=== PATIENT | female | born 1945 | race Caucasian/White ===

== ENCOUNTER → 2019-05-27 | Day surgery (SDC) | payer MEDICARE, OTHER ==
[2019-05-26 14:39] LABS: BASOPHILS # (AUTO) 0.1 (0.0-0.1); BASOPHILS % 0.4 % (0.0-1.0); EOSINOPHILS # (AUTO) 0.2 (0.0-0.4); EOSINOPHILS % 1.5 % (0.0-6.0); HEMATOCRIT 43.3 % (34.2-44.1); HEMOGLOBIN 14.3 g/dL (12.0-16.0); LYMPHOCYTES % 16.7 % (18.0-39.1); MEAN CORPUSCULAR HEMOGLOBIN 29.9 pg (28-32); MEAN CORPUSCULAR VOLUME 90.4 fL (81-99); MONOCYTES % 8.8 % (4.4-11.3); NEUTROPHILS # (AUTO) 8.4 (2.1-6.9); NEUTROPHILS % 72.1 % (38.7-80.0); PLATELET COUNT 272 x10e3/uL (140-360); RED BLOOD COUNT 4.79 x10e6/uL (3.6-5.1); RED CELL DISTRIBUTION WIDTH 13.7 % (11.7-14.4)
[2019-05-26 14:53] LABS: INR 1.23; PROTHROMBIN TIME 15.8 seconds (11.9-14.5)
[2019-05-26 15:02] LABS: ALANINE AMINOTRANSFERASE 14 IU/L (0-55); ALBUMIN 3.7 g/dL (3.5-5.0); ALBUMIN/GLOBULIN RATIO 1.2 (0.8-2.0); ALKALINE PHOSPHATASE 76 IU/L (40-150); ANION GAP 13.3 mmol/L (8-16); BLOOD UREA NITROGEN 14 mg/dL (7-26); BUN/CREATININE RATIO 18 (6-25); CALCIUM 9.3 mg/dL (8.4-10.2); CARBON DIOXIDE 27 mmol/L (22-29); CHLORIDE 100 mmol/L (98-107); CREATININE, SERUM 0.76 mg/dL (0.57-1.11); EST GLOMERULAR FILTRATION RATE > 60 ML/MIN (60-); GLUCOSE 102 mg/dL (74-118); POTASSIUM 3.3 mmol/L (3.5-5.1); SODIUM 137 mmol/L (136-145)
[~2019-05-27] VITALS: Ht 154.9 cm; Wt 86.2 kg
[~2019-05-27] MED LIST: ALPRAZOLAM0.25 MG PO; AMIODARONE HCL200 MG PO; BENZOCAINE 20% SPR 60 ML CAN ONE; BREO ELLIPTA 21 EACH INH; ELIQUIS5 MG PO; FENTANYL CITRATE/PF 100MCG/2 ML INJ ONE; LEXAPRO10 MG PO; METOPROLOL SUCC50 MG PO; MIDAZOLAM HCL 2 MG/2 ML VIAL ONE; PROPOFOL IV EMULSION 10 MG/ML 20 ML VIAL ONE; SODIUM CHLORIDE 0.9% 1000ML 1,000 ML ONE
--- OUTSIDE RECORDS SUMMARY | 2019-05-27 07:57 | XMS REPORT ---
Author Author [facility] Address Unknown Phone Unavailable Care Team Providers Care Machine Rigger Name Role Phone Conor PHILLIPS Unavailable Unavailable Problems This patient has no known problems. Allergies, Adverse Reactions, Alerts This patient has no known allergies or adverse reactions. Medications This patient has no known medications. Results Test Description Test Time Test Comments Text Results Atomic Results Result Comments BREAST ULTRASOUND BILATERAL 2019-03-04 15:03:00 - DIAG MAMM BILATERAL DIONNE CAD DIGITALBILATERAL DIGITAL DIAGNOSTIC MAMMOGRAM 3D/2D WITH CAD: 03/04/2019CLINICAL: Dense breasts. Digital breast tomosynthesis was performed in addition to routine CC and MLO views. Current mammographic images were evaluated by either a [employer] M-Vu or a Fanear ImageChecker CAD (computer aided detection system). Comparison is made to exams dated 02/17/2018 mammogram, 01/20/2017 mammogram, and 01/19/2016 mammogram - [facility]. The tissue of both breasts is heterogeneously dense. This may lower the sensitivity of mammography. No suspicious mass, architectural distortion, malignant type calcification, or lymph node abnormality detected. INCOMPLETE: ADDITIONAL IMAGING EVALUATION NEEDEDBilateral ultrasound pending for additional evaluation. Resume annual screening mammography in one year. - BREAST ULTRASOUND BILATERALULTRASOUND OF BOTH BREASTS AND BOTH AXILLA: 03/04/2019Comparison is made to exams dated 02/17/2018 mammogram, 01/20/2017 mammogram, and 01/19/2016 mammogram - [facility]. Real-time ultrasound of both breasts and both axilla and clinical breast exam were performed. No abnormalities were seen sonographically in either breast or either axilla. Clinical breast exam was unremarkable.IMPRESSION: NEGATIVE There is no sonographic evidence of malignancy. Patient has been informed that she has areas of dense breast tissue that could make it difficult to find a small cancer. She has a strong family history of breast cancer. A screening mammogram and supplemental ultrasound for dense breast tissue is recommended in 1 year. Lazara Canales M.D. dm/:03/04/2019 15:03:00 Balloon Artist: Nelly MAHMOOD, [facility]letter sent: BIRADS 1-2 Combo FU Letter Mammogram BI-RADS: 0 Incomplete: Additional Imaging Evaluation Needed Ultrasound BI-RADS: 1 Negative DIAG MAMM BILATERAL DIONNE CAD DIGITAL 2019-03-04 15:03:00 - DIAG MAMM BILATERAL DIONNE CAD DIGITALBILATERAL DIGITAL DIAGNOSTIC MAMMOGRAM 3D/2D WITH CAD: 03/04/2019CLINICAL: Dense breasts. Digital breast tomosynthesis was performed in addition to routine CC and MLO views. Current mammographic images were evaluated by either a [employer] M-Vu or a Fanear ImageChecker CAD (computer aided detection system). Comparison is made to exams dated 02/17/2018 mammogram, 01/20/2017 mammogram, and 01/19/2016 [facility]. The tissue of both breasts is heterogeneously dense. This may lower the sensitivity of mammography. No suspicious mass, architectural distortion, malignant type calcification, or lymph node abnormality detected. INCOMPLETE: ADDITIONAL IMAGING EVALUATION NEEDEDBilateral ultrasound pending for additional evaluation. Resume annual screening mammography in one year. - BREAST ULTRASOUND BILATERALULTRASOUND OF BOTH BREASTS AND BOTH AXILLA: 03/04/2019Comparison is made to exams dated 02/17/2018 mammogram, 01/20/2017 mammogram, and [facility]. Real-time ultrasound of both breasts and both axilla and clinical breast exam were performed. No abnormalities were seen sonographically in either breast or either axilla. Clinical breast exam was unremarkable.IMPRESSION: NEGATIVE There is no sonographic evidence of malignancy. Patient has been informed that she has areas of dense breast tissue that could make it difficult to find a small cancer. She has a strong family history of breast cancer. A screening mammogram and supplemental ultrasound for dense breast tissue is recommended in 1 year. Lazara Canales M.D. dm/:03/04/2019 15:03:00 Balloon Artist: Mara Connell [facility]letter sent: BIRADS 1-2 Combo FU Letter Mammogram BI-RADS: 0 Incomplete: Additional Imaging Evaluation Needed Ultrasound BI-RADS: 1 Negative BREAST ULTRASOUND BILATERAL 2018-02-18 07:59:30 - DIAG MAMM BILATERAL DIONNE CAD DIGITALBILATERAL DIGITAL DIAGNOSTIC MAMMOGRAM 3D/2D WITH CAD: 02/17/2018CLINICAL: Dense breasts. Digital breast tomosynthesis was performed in addition to routine CC and MLO views. Current mammographic images were evaluated by either a [employer] M-Vu or a Fanear ImageChecker CAD (computer aided detection system). Comparison is made to exams dated 01/20/2017 mammogram, 01/19/2016 mammogram, and 01/06/2015 mammogram - [facility] The tissue of both breasts is heterogeneously dense. This may lower the sensitivity of mammography. No suspicious mass, architectural distortion, malignant type calcification, or lymph node abnormality detected. INCOMPLETE ASSESSMENT: ADDITIONAL IMAGING EVALUATION RECOMMENDEDUltrasound pending for additional evaluation. Resume annual screening mammography in one year. - BREAST ULTRASOUND BILATERALULTRASOUND OF BOTH BREASTS AND BOTH AXILLA: 02/17/2018Comparison is made to exams dated 01/20/2017 mammogram, 01/19/2016 mamm ogram, and 01/06/2015 mammogram - [facility] Real-time ultrasound of both breasts and both axilla was performed. No abnormalities were seen sonographically in either breast or either axilla. IMPRESSION: NEGATIVE There is no sonographic evidence of malignancy. Patient has been informed that she has areas of dense breast tissue that could make it difficult to find a small cancer. A screening mammogram and supplemental ultrasound for dense breast tissue is recommended in 1 year.Lazara Canales M.D. dm/:02/18/2018 07:59:30 copy to: Rigo Villa D.O., ph: [phone], fax: [phone] Technologist: Lona MAHMOOD, [facility] sent: BIRADS 1-2 Combo FU Letter Mammogram BI-RADS: 0 Indeterminate Ultrasound BI-RADS: 1 Negative DIAG MAMM BILATERAL DIONNE CAD DIGITAL 2018-02-18 07:59:30 - DIAG MAMM BILATERAL DIONNE CAD DIGITALBILATERAL DIGITAL DIAGNOSTIC MAMMOGRAM 3D/2D WITH CAD: 02/17/2018CLINICAL: Dense breasts. Digital breast tomosynthesis was performed in addition to routine CC and MLO views. Current mammographic images were evaluated by either a [employer] M-Vu or a [employer]orial Presciencecker CAD (computer aided detection system). Comparison is made to exams dated 01/20/2017 mammogram, 01/19/2016 mammogram, and 01/06/2015 [facility]. The tissue of both breasts is heterogeneously dense. This may lower the sensitivity of mammography. No suspicious mass, architectural distortion, malignant type calcification, or lymph node abnormality detected. INCOMPLETE ASSESSMENT: ADDITIONAL IMAGING EVALUATION RECOMMENDEDUltrasound pending for additional evaluation. Resume annual screening mammography in one year. - BREAST ULTRASOUND BILATERALULTRASOUND OF BOTH BREASTS AND BOTH AXILLA: 02/17/2018Comparison is made to exams dated 01/20/2017 mammogram, 01/19/2016 mamm ogram, and 01/06/2015 [facility]. Real-time ultrasound of both breasts and both axilla was performed. No abnormalities were seen sonographically in either breast or either axilla. IMPRESSION: NEGATIVE There is no sonographic evidence of malignancy. Patient has been informed that she has areas of dense breast tissue that could make it difficult to find a small cancer. A screening mammogram and supplemental ultrasound for dense breast tissue is recommended in 1 year.Lazara Canales M.D. dm/:02/18/2018 07:59:30 copy to: Rigo Villa D.O., ph: [phone], fax: [phone] Technologist: Lona Goodwin , [facility] sent: BIRADS 1-2 Combo FU Letter Mammogram BI-RADS: 0 Indeterminate Ultrasound BI-RADS: 1 Negative BREAST ULTRASOUND BILATERAL 2018-02-18 07:59:30 - DIAG MAMM BILATERAL DIONNE CAD DIGITALBILATERAL DIGITAL DIAGNOSTIC MAMMOGRAM 3D/2D WITH CAD: 02/17/2018CLINICAL: Dense breasts. Digital breast tomosynthesis was performed in addition to routine CC and MLO views. Current mammographic images were evaluated by either a [employer] M-Vu or a Fanear ImageChecker CAD (computer aided detection system). Comparison is made to exams dated 01/20/2017 mammogram, 01/19/2016 mammogram, and 01/06/2015 [facility]. The tissue of both breasts is heterogeneously dense. This may lower the sensitivity of mammography. No suspicious mass, architectural distortion, malignant type calcification, or lymph node abnormality detected. INCOMPLETE ASSESSMENT: ADDITIONAL IMAGING EVALUATION RECOMMENDEDUltrasound pending for additional evaluation. Resume annual screening mammography in one year. - BREAST ULTRASOUND BILATERALULTRASOUND OF BOTH BREASTS AND BOTH AXILLA: 02/17/2018Comparison is made to exams dated 01/20/2017 mammogram, 01/19/2016 mamm ogram, and 01/06/2015 [facility]. Real-time ultrasound of both breasts and both axilla was performed. No abnormalities were seen sonographically in either breast or either axilla. IMPRESSION: NEGATIVE There is no sonographic evidence of malignancy. Patient has been informed that she has areas of dense breast tissue that could make it difficult to find a small cancer. A screening mammogram and supplemental ultrasound for dense breast tissue is recommended in 1 year.Lazara Canales M.D. dm/:02/18/2018 07:59:30 copy to: Rigo Villa D.O., ph: [phone], fax: [phone] Technologist: Lona MAHMOOD, [facility] sent: BIRADS 1-2 Combo FU Letter Mammogram BI-RADS: 0 Indeterminate Ultrasound BI-RADS: 1 Negative DIAG MAMM BILATERAL DIONNE CAD DIGITAL 2018-02-18 07:59:30 - DIAG MAMM BILATERAL DIONNE CAD DIGITALBILATERAL DIGITAL DIAGNOSTIC MAMMOGRAM 3D/2D WITH CAD: 02/17/2018CLINICAL: Dense breasts. Digital breast tomosynthesis was performed in addition to routine CC and MLO views. Current mammographic images were evaluated by either a [employer] M-Vu or a Fanear ImageChecker CAD (computer aided detection system). Comparison is made to exams dated 01/20/2017 mammogram, 01/19/2016 mammogram, and 01/06/2015 mammogram - [facility]. The tissue of both breasts is heterogeneously dense. This may lower the sensitivity of mammography. No suspicious mass, architectural distortion, malignant type calcification, or lymph node abnormality detected. INCOMPLETE ASSESSMENT: ADDITIONAL IMAGING EVALUATION RECOMMENDEDUltrasound pending for additional evaluation. Resume annual screening mammography in one year. - BREAST ULTRASOUND BILATERALULTRASOUND OF BOTH BREASTS AND BOTH AXILLA: 02/17/2018Comparison is made to exams dated 01/20/2017 mammogram, 01/19/2016 mamm ogram, and 01/06/2015 mammogram - [facility] Real-time ultrasound of both breasts and both axilla was performed. No abnormalities were seen sonographically in either breast or either axilla. IMPRESSION: NEGATIVE There is no sonographic evidence of malignancy. Patient has been informed that she has areas of dense breast tissue that could make it difficult to find a small cancer. A screening mammogram and supplemental ultrasound for dense breast tissue is recommended in 1 year.Lazara Canales M.D. dm/:02/18/2018 07:59:30 copy to: Rigo Villa D.O., ph: [phone], fax: [phone] Technologist: Lona MAHMOOD, [facility] sent: BIRADS 1-2 Combo FU Letter Mammogram BI-RADS: 0 Indeterminate Ultrasound BI-RADS: 1 Negative US THYROID [place] [address] Patient Name: JUAN C KRAUS MR #: [id number] : 1945 Age/Sex: 71/F Req #: [id number] Adm Physician: Ordered by: CLAUDIA PHILLIPS MD Report #: [id number] Location: US Room/Bed: Procedure: [id number] US/US THYROID Exam Date: Exam Time: REPORT STATUS: Signed PROCEDURE: US THYROID COMPARISON: Thyroid ultrasound 08/20/2010. INDICATIONS: Thyroid Mass TECHNIQUE: Transverse and longitudinal elizabeth-scale sonographic images of the thyroid were obtained and supplemented with color doppler. FINDINGS: Right thyroid lobe: 3.6 x 2.1 x 2.1 cm. Left thyroid lobe: Left thyroid lobectomy. Isthmus: 0.5 cm. Small well circumscribed 0.4 x 0.3 x 0.6 cm hypoechoic nodule is present in the isthmus. CONCLUSION: No acute sonographic abnormality. Left thyroid lobectomy. The nodule in the isthmus does not meet criteria for biopsy, and is likely benign. Dictated by: Nano Rose M.D. on 12/09/2016 at 13:54 Electronically approved by: Nano Rose M.D. on 12/09/2016 at 13:54 Dictated By: NANO ROSE MD [id number] Transcribed By: EDDIE on 12/09/16 1354 COPY TO: CLAUDIA PHILLIPS MD
[2019-05-27 08:09] VITALS: BP 139/91
[2019-05-27 11:20] VITALS: BP 107/69
--- NOTE | 2019-05-27 16:00 | Operative Report ---
DATE OF PROCEDURE: SURGEON: Paul Villa DO PROCEDURES PERFORMED: 1. Transesophageal echocardiography. 2. Direct current cardioversion. PREPROCEDURE DIAGNOSIS: Atrial fibrillation. POSTPROCEDURE DIAGNOSIS: Atrial fibrillation. ESTIMATED BLOOD LOSS: Zero. PROCEDURE IN DETAIL: The patient was brought to the endoscopy suite. Anesthesia was used for monitored anesthesia care. A 2% Cetacaine was sprayed at the posterior pharynx for topical anesthesia. The transesophageal echocardiography probe was passed with ease and multiple images were performed. No left atrial thrombus was seen. The patient received 200 joules synchronized for direct current cardioversion with prompt evangelical of normal sinus rhythm. The patient tolerated the procedure well with no immediate complications and transferred back to her room in stable condition. Paul Villa DO BM/MODL /[id number]
== END | disposition home or self-care (01) ==
LOC: CATH LAB 07:43
PROVIDERS: ATTEND Internal Medicine Cardiovascular Disease
DX: I48.91 Unspecified atrial fibrillation (principal); I34.1 Nonrheumatic mitral (valve) prolapse; I34.0 Nonrheumatic mitral (valve) insufficiency; I35.1 Nonrheumatic aortic (valve) insufficiency; I35.8 Other nonrheumatic aortic valve disorders; R09.89 Other specified symptoms and signs involving the circulatory and respiratory systems; I20.8 Other forms of angina pectoris; I10 Essential (primary) hypertension; J45.909 Unspecified asthma, uncomplicated; F32.9 Major depressive disorder, single episode, unspecified; Z88.8 Allergy status to other drugs, medicaments and biological substances; Z01.810 Encounter for preprocedural cardiovascular examination; Z01.812 Encounter for preprocedural laboratory examination; Z79.82 Long term (current) use of aspirin; Z79.02 Long term (current) use of antithrombotics/antiplatelets; Z68.35 Body mass index [BMI] 35.0-35.9, adult; Z82.49 Family history of ischemic heart disease and other diseases of the circulatory system
CPT/HCPCS: 36415; 80053; 85025; 85610; 92960; 93312; 93320; 93325 ×2; J2250; J2704; J3010; J7030; 93307

== ENCOUNTER 2019-11-01 01:31 | Emergency (ER) | payer MEDICARE, OTHER ==
[~2019-11-01] VITALS: Ht 154.9 cm; Wt 86.2 kg
[~2019-11-01 01:31] MED LIST changes: -BENZOCAINE 20% SPR 60 ML CAN ONE; -FENTANYL CITRATE/PF 100MCG/2 ML INJ ONE; -MIDAZOLAM HCL 2 MG/2 ML VIAL ONE; -PROPOFOL IV EMULSION 10 MG/ML 20 ML VIAL ONE; -SODIUM CHLORIDE 0.9% 1000ML 1,000 ML ONE
[2019-11-01 02:03] LABS: BASOPHILS # (AUTO) 0.1 (0.0-0.1); BASOPHILS % 0.5 % (0.0-1.0); EOSINOPHILS # (AUTO) 0.3 (0.0-0.4); EOSINOPHILS % 3.1 % (0.0-6.0); HEMATOCRIT 44.5 % (34.2-44.1); HEMOGLOBIN 14.3 g/dL (12.0-16.0); LYMPHOCYTES # (AUTO) 0.5 (1.0-3.2); LYMPHOCYTES % 4.3 % (18.0-39.1); MEAN CORPUSCULAR HEMOGLOBIN 30.5 pg (28-32); MEAN CORPUSCULAR HGB CONC 32.1 g/dL (31-35); MEAN CORPUSCULAR VOLUME 94.9 fL (81-99); MONOCYTES # (AUTO) 0.9 (0.2-0.8); MONOCYTES % 8.5 % (4.4-11.3); NEUTROPHILS # (AUTO) 9.1 (2.1-6.9); NEUTROPHILS % 82.9 % (38.7-80.0); PLATELET COUNT 266 x10e3/uL (140-360); RED BLOOD COUNT 4.69 x10e6/uL (3.6-5.1); RED CELL DISTRIBUTION WIDTH 14.7 % (11.7-14.4)
--- NOTE | 2019-11-01 02:07 | Emergency Department Note ---
History of Present Illnes History of Present Illness History of Present Illness This is a 74 year old female arrived to the ED with epigastric abdominal pain cough and fever. Patient states she lives alone and is not going anywhere but does have adult kids visit. . Onset (how long ago): day(s) Severity: mild Duration (how long): day(s) Chronicity: new Relieving factors: none Associated symptoms: Reports denies other symptoms Past Medical/Family History Physician Review I have reviewed the patient's past medical and family history. Any updates have been documented here. Past Medical History Recent Fever: Yes Clinical Suspicion of Infectio: Yes New/Unexplained Change in Ment: No Social History Smoking Cessation: Never Smoker Counseling Performed: No Alcohol Use: None Review of Systems Review of Systems Constitutional: Reports as per HPI, Reports chills, Reports fever EENTM: Reports no symptoms Cardiovascular: Reports no symptoms Respiratory: Reports as per HPI, Reports cough Gastrointestinal: Reports no symptoms Genitourinary: Reports no symptoms Musculoskeletal: Reports no symptoms Integumentary: Reports no symptoms Neurological: Reports no symptoms Psychological: Reports no symptoms Endocrine: Reports no symptoms Hematological/Lymphatic: Reports no symptoms Physical Exam Related Data Allergies: Coded Allergies: lisinopril (Verified Allergy, Unknown, COUGH, 05/26/19) rosuvastatin (Verified Allergy, Unknown, JOINT PAIN, MUSCLE ACHES, 05/26/19) Vital signs reviewed: Yes Physical Exam CONSTITUTIONAL Constitutional: Present well-developed, Present well-nourished HENT HENT: Present normocephalic, Present atraumatic, Present oropharynx clear/moist, Present nose normal HENT L/R: Present left ext ear normal, Present right ext ear normal EYES Eyes: Reports PERRL, Reports conjunctivae normal NECK Neck: Present ROM normal PULMONARY Pulmonary: Present effort normal, Present respiratory distress CARDIOVASCULAR Cardiovascular: Present regular rhythm, Present heart sounds normal, Present capillary refill normal, Present normal rate GASTROINTESTINAL Abdominal: Present soft, Present nontender, Present bowel sounds normal GENITOURINARY Genitourinary: Present exam deferred SKIN Skin: Present warm, Present dry MUSCULOSKELETAL Musculoskeletal: Present ROM normal NEUROLOGICAL Neurological: Present alert, Present oriented x 3, Present no gross motor or sensory deficits PSYCHOLOGICAL Psychological: Present mood/affect normal, Present judgement normal Results Laboratory Lab results reviewed: Yes Imaging Imaging results reviewed: Yes Assessment & Plan Medical Decision Making [facility] 74-year-old female arrived to the ED with generalized malaise weakness low-grade temp and tachypnea. Patient's chest x-ray concerning for possible Covid 19, patient noted to become markedly hypoxic on exertion, patient transferred to [facility] for further workup and management. Assessment & Plan Final Impression: (1) Acute respiratory failure due to COVID-19 Depart Disposition: TRANS TO OTHER [facility] F[facility] Home Meds Reported Medications Fluticasone/Vilanterol (Breo Ellipta 200-25 Mcg INH) 1 Each Blst.w.dev, 1 INH INH DAILY 2/09/07 Alprazolam (ALPRAZOLAM) 0.25 Mg Tablet, PO BID PRN for ANXIETY, #90 TAB 1-2 TAB PO BID PRN ANXIETY 05/26/19 Amiodarone Hcl (AMIODARONE HCL) 200 Mg Tablet, 2 TAB PO BID /20 Escitalopram Oxalate (LEXAPRO) 10 Mg Tablet, 20 MG PO DAILY, #30 TAB 05/26/19 Metoprolol Succinate (METOPROLOL SUCCINATE) 50 Mg Tab.er.24h, 2 TAB PO BID 20 Apixaban (Eliquis) 5 Mg Tablet, 5 MG PO BID /20 HARJINDER BILL, Nov 01, 2019 02:07
[2019-11-01] MEDS ORDERED: ACETAMINOPHEN 325 MG TAB PO ONE (02:15)
[2019-11-01 02:23] LABS: ALANINE AMINOTRANSFERASE 21 IU/L (0-55); ALBUMIN 3.4 g/dL (3.5-5.0); ALBUMIN/GLOBULIN RATIO 0.9 (0.8-2.0); ALKALINE PHOSPHATASE 80 IU/L (40-150); ANION GAP 9.7 mmol/L (8-16); BLOOD UREA NITROGEN 11 mg/dL (7-26); BUN/CREATININE RATIO 15 (6-25); CALCIUM 9.1 mg/dL (8.4-10.2); CARBON DIOXIDE 29 mmol/L (22-29); CHLORIDE 103 mmol/L (98-107); CREATINE KINASE 44 IU/L (29-168); CREATININE, SERUM 0.73 mg/dL (0.57-1.11); EST GLOMERULAR FILTRATION RATE > 60 ML/MIN (60-); GLUCOSE 126 mg/dL (74-118); POTASSIUM 3.7 mmol/L (3.5-5.1); SODIUM 138 mmol/L (136-145)
[2019-11-01] MEDS ORDERED: IOPAMIDOL 370 MG/ML 200 ML INFUS..BTL INJ ONE (02:46)
[2019-11-01] MEDS ORDERED: SODIUM CHLORIDE 0.9% 50ML 50 ML ONE (02:46)
--- NOTE | 2019-11-01 05:20 | Diagnostic Imaging Report ---
EXAM: CT Abdomen and Pelvis WITH contrast INDICATION: Abdominal pain, short of breath, fever COMPARISON: None. TECHNIQUE: Abdomen and pelvis were scanned utilizing a multidetector helical scanner from the lung base to the pubic symphysis after administration of IV contrast. Coronal and sagittal reformations were obtained. Routine protocol was performed. Scan was performed when during portal venous phase. IV CONTRAST: 100 mL of Isovue 370 ORAL CONTRAST: None COMPLICATIONS: None RADIATION DOSE: Total DLP: 693 mGy*cm Estimated effective dose: (DLP x 0.015 x size factor) mSv CTDIvol has been reviewed. It is below the limits set by the Radiation Protocol Committee (RPC). Dose modulation, iterative reconstruction, and/or weight based adjustment of the mA/kV was utilized to reduce the radiation dose to as low as reasonably achievable. FINDINGS: LINES and TUBES: None. LOWER THORAX: Mitral annular calcifications. Aortic valve calcifications. A few subtle focal groundglass opacities in the lower lungs. A 1 cm focal groundglass nodule in the right lower lobe. Mild cardiomegaly. HEPATOBILIARY: No focal hepatic lesions. No biliary ductal dilation. GALLBLADDER: No radio-opaque stones or sludge. No wall thickening. SPLEEN: No splenomegaly. PANCREAS: No focal masses or ductal dilatation. ADRENALS: No adrenal nodules KIDNEYS/URETERS: Kidneys enhance symmetrically. No hydronephrosis. No cystic or solid mass lesions. No stones. GI TRACT: No abnormal distention, wall thickening, or evidence of bowel obstruction. Colonic diverticuli. No appendicitis. PELVIC ORGANS/BLADDER: Unremarkable. LYMPH NODES: No lymphadenopathy. VESSELS: Vascular calcifications. PERITONEUM / RETROPERITONEUM: No free air or fluid. BONES: Degenerative changes. SOFT TISSUES: Unremarkable. IMPRESSION: 1. A few subtle focal groundglass opacities in the lower lungs, possibly due to atelectasis or pneumonia. A 1 cm focal groundglass nodule in the right lower lobe warrants follow-up chest CT in 3 months. 2. Mild cardiomegaly and mitral annular/valve disease. 3. Colonic diverticulosis without diverticulitis. Signed by: Ben Fulton DO on 11/01/2019 5:17 AM
--- NOTE | 2019-11-01 05:48 | NUR ---
TRANSFER INITIATED TO [facility], SPOKE TO NAVEED AT TRANSFER CENTER
--- NOTE | 2019-11-01 06:09 | NUR ---
ADMIN APPROVAL FROM NAVEED PETERSON, RN AT [facility] ASSIGNED TO [address] BED #[id number], DR. MCFADDEN
--- NOTE | 2019-11-01 06:45 | NUR ---
walking rounds with divine gutierrez
--- NOTE | 2019-11-01 07:40 | NUR ---
report called to receiving facility, [facility] here to transport patient.
--- NOTE | 2019-11-01 08:35 | Diagnostic Imaging Report ---
EXAMINATION: CHEST SINGLE (PORTABLE) INDICATION: Abdominal pain COMPARISON: Abdomen and pelvis CT of the same day FINDINGS: LINES/TUBES:EKG leads overlie the chest. LUNGS:The lungs are well-inflated. No focal consolidation or pulmonary edema. PLEURA:No pleural effusion or pneumothorax. MEDIASTINUM:The cardiomediastinal silhouette appears normal in size and shape. BONES/SOFT TISSUES:No acute osseous injury. ABDOMEN:No free air under the diaphragm. IMPRESSION: No focal pneumonia or pulmonary edema. Signed by: Marlena Garza MD on 11/01/2019 8:32 AM
== END 2019-11-01 08:08 | disposition short-term general hospital (02) ==
LOC: ER 02:15
DX: R05 Cough (principal); R50.9 Fever, unspecified; R09.02 Hypoxemia; Z20.828 Contact with and (suspected) exposure to other viral communicable diseases
CPT/HCPCS: 36415; 71045; 74177; 80053; 82550; 82553; 83880; 84484; 85025; 87635; 93005; 99284; Q9967; U0002

== ENCOUNTER → 2022-01-15 | Outpatient (CLI) | payer MEDICARE, OTHER | LOC: US 11:24 | PROVIDERS: ATTEND Family Medicine | DX: E04.1 Nontoxic single thyroid nodule (principal); E03.9 Hypothyroidism, unspecified | CPT/HCPCS: 76536 ==

== ENCOUNTER → 2024-08-03 | Outpatient (REF) | payer MEDICARE, BC | LOC: US 14:26 | PROVIDERS: ATTEND Family Medicine | DX: R22.1 Localized swelling, mass and lump, neck (principal) | CPT/HCPCS: 76536 ==